=== PATIENT | female | born 1965 | race Caucasian/White ===

== ENCOUNTER 2020-08-30 06:15 | Observation (INO) | payer OTHER ==
[~2020-08-30] VITALS: Ht 172.7 cm; Wt 84.1 kg
[~2020-08-30 06:15] MED LIST: ASCO500T8 PO; CHOL10003 PO; IBUP1TAB11 PO; LOSA100T14 PO; MULT-90 PO; VITA15LO2 PO
[2020-08-30] MEDS ORDERED: ONDANSETRON 2MG/ML, 2ML ONE ×2 (06:55→18:29)
[2020-08-30] MEDS ORDERED: MORPHINE SULFATE 4 MG/ML, 1ML ONE (06:56)
[2020-08-30] MEDS: MORPHINE SULFATE 4 MG/ML, 1ML IVPush PRN ×2 (06:57→13:24)
[2020-08-30] MEDS ORDERED: ONDANSETRON 2MG/ML, 2ML IVPush ONE (07:00)
[2020-08-30] MEDS ORDERED: SODIUM CHLORIDE FLUSH 10ML SYR IVF ONE (07:00)
--- NOTE | 2020-08-30 07:10 | NUR ---
Report received from RAZ Adamson at bedside and care assumed. Pt on pacer pads at bedside but not being paced at this time. VS noted as stable but hypertensive, pt is awake and oriented without c/o at this time. Pt awaiting bed assignment to be transferred to telemetry.
[2020-08-30 07:13] LABS: BASOPHILS % (AUTO) 0 % (0-1); EOSINOPHILS % (AUTO) 0 % (1-7); LYMPHOCYTES % (AUTO) 13 % (22-44); MEAN CORPUSCULAR HEMOGLOBIN 29.9 pg (27.0-34.8); MEAN CORPUSCULAR HGB CONC 34.5 g/dL (32.4-35.8); MEAN PLATELET VOLUME 7.5 fL (7.4-10.4); MONOCYTES % (AUTO) 5 % (2-9); NEUTROPHILS % (AUTO) 81 % (42-75); PLATELET COUNT 335 x10^3/uL (130-400); RED BLOOD COUNT 4.84 x10^6/uL (3.82-5.3); RED CELL DISTRIBUTION WIDTH 13.2 % (9.6-15.2)
[2020-08-30 07:15] LABS: ALANINE AMINOTRANSFERASE 233 U/L (12-78); ALBUMIN 3.8 g/dL (3.4-5.0); ANION GAP 7 mmol/L (5-15); CALCIUM 9.6 mg/dL (8.5-10.1); CHLORIDE 113 mmol/L (98-107)
[2020-08-30 07:16] LABS: MD NO
[2020-08-30 07:20] LABS: ALKALINE PHOSPHATASE 93 U/L (45-117); BILIRUBIN,TOTAL 1.2 mg/dL (0.2-1.0); CREATININE 0.68 mg/dL (0.55-1.02); TOTAL PROTEIN 7.2 g/dL (6.4-8.2); TROPONIN I < 0.015 ng/mL (0.000-0.045)
--- NOTE | 2020-08-30 07:57 | NUR ---
Pt off unit to radiology at this time. Visitor in room offered beverages but declined. States he is okay right now.
--- NOTE | 2020-08-30 08:03 | NUR ---
Pt back to room from radiology without acute changes noted.
--- NOTE | 2020-08-30 08:56 | NUR ---
Pt noted out of room for radiology exam at this time. Addendum: 08/30/20 at [id number] by MURIEL time charted incorrectly, actual time of note should be 0750
[2020-08-30] MEDS ORDERED: CEFTRIAXONE PMX 1GM/50ML 50 ML ONE (10:23)
[2020-08-30] MEDS ORDERED: METRONIDAZOLE PMX 500MG/100ML 100 ML ONE (10:23)
[2020-08-30] MEDS ORDERED: SODIUM CHLORIDE FLUSH 10ML SYR IVF PRN (10:30)
[2020-08-30] MEDS ORDERED: METRONIDAZOLE PMX 500MG/100ML 100 ML IV ONE (10:30)
[2020-08-30] MEDS ORDERED: ONDANSETRON 2MG/ML, 2ML IVPush PRN (10:30)
[2020-08-30] MEDS ORDERED: CEFTRIAXONE PMX 1GM/50ML 50 ML IV ONE (10:30)
[2020-08-30] MEDS ORDERED: MORPHINE SULFATE 4 MG/ML, 1ML IVPush PRN (10:30)
--- NOTE | 2020-08-30 10:46 | NUR ---
Rocephin IVPB started as ordered via IV pump. MD at bedside to discuss plan of care for today.
[2020-08-30] MEDS ORDERED: POTASSIUM CHLORIDE 20 MEQ in SODIUM CHLORIDE 0.45% 1,000 ML IV ONE (11:00)
--- NOTE | 2020-08-30 11:50 | NUR ---
Report called to RAZ Vasquez and assigned to room 447. Pt aware of room assignment and readied for transport to floor.
[2020-08-30 12:31] VITALS: BP 119/70
[2020-08-30] MEDS ORDERED: IBUP1TAB11 PO (12:51)
[2020-08-30] MEDS ORDERED: LOSA100T14 PO (12:51)
[2020-08-30] MEDS ORDERED: BUPIVACAINE/PF-EPI 0.5% 1:200K ONE (17:28)
[2020-08-30] MEDS ORDERED: BUPIVACAINE/PF 0.5% ONE (17:34)
[2020-08-30] MEDS ORDERED: MIDAZOLAM 1 MG/ML, 2ML ONE (17:46)
[2020-08-30] MEDS ORDERED: FENTANYL PF 250 MCG/5ML ONE (17:47)
[2020-08-30] MEDS ORDERED: CEFAZOLIN 1,000 MG ONE (18:29)
[2020-08-30] MEDS ORDERED: SUCCINYLCHOLINE 20 MG/ML, 10ML ONE (18:29)
[2020-08-30] MEDS ORDERED: NEOSTIGMINE 1 MG/ML, 10ML ONE (18:29)
[2020-08-30] MEDS ORDERED: PROPOFOL 10 MG/ML, 20ML ONE (18:29)
[2020-08-30] MEDS ORDERED: ROCURONIUM 10MG/ML,5ML ONE (18:29)
[2020-08-30] MEDS ORDERED: SUGAMMADEX 200 MG/2 ML IVPush ONE ×2 (18:29)
[2020-08-30] MEDS ORDERED: KETOROLAC 30 MG/1 ML ONE (18:29)
[2020-08-30] MEDS ORDERED: GLYCOPYRROLATE 0.2MG/1ML, 5ML ONE (18:29)
[2020-08-30] MEDS ORDERED: FENTANYL PF 100 MCG/2ML IV PRN (18:30)
[2020-08-30] MEDS ORDERED: ACETAMINOPHEN 325 MG TABLET PO PRN ×2 (18:30)
[2020-08-30] MEDS ORDERED: PROMETHAZINE 25 MG/ML, 1ML IV PRN ×2 (18:30)
[2020-08-30] MEDS ORDERED: hydrALAzine 20 MG/ML, 1ML IV PRN ×2 (18:30)
[2020-08-30] MEDS ORDERED: ALBUTEROL SULFATE 2.5 MG/3 ML NPPB PRN ×2 (18:30)
[2020-08-30] MEDS ORDERED: HYDROmorphone 2 MG/ML, 1ML IVPush PRN ×2 (18:30)
[2020-08-30] MEDS ORDERED: KETOROLAC 30 MG/1 ML IV PRN ×2 (18:30)
[2020-08-30] MEDS ORDERED: LABETALOL 5MG/ML, 20ML IV PRN ×2 (18:30)
[2020-08-30] MEDS ORDERED: MEPERIDINE/PF 25MG/0.5ML IVPush PRN ×2 (18:30)
[2020-08-30] MEDS ORDERED: OXYcodone 5 MG/5 ML ORAL.SOL UDC PO PRN ×2 (18:30)
[2020-08-30] MEDS ORDERED: DIAZEPAM 5 MG/ML, 2ML IVPush PRN ×2 (18:30)
[2020-08-30] MEDS ORDERED: OXYcodone 5 MG/5 ML ORAL.SOL UDC ONE (18:46)
[2020-08-30] MEDS ORDERED: ACETAMINOPHEN 650 MG/20.3 ML UDC ONE (18:46)
[2020-08-30] MEDS ORDERED: FENTANYL PF 100 MCG/2ML ONE (18:46)
[2020-08-30] MEDS: FENTANYL PF 100 MCG/2ML IV PRN ×2 (18:48→19:00)
[2020-08-30] MEDS ORDERED: MEPERIDINE/PF 25MG/ML,1ML ONE (19:18)
[2020-08-30 20:58] VITALS: BP 149/86
== END 2020-08-30 21:26 | disposition home or self-care (01) ==
LOC: ED 06:58 → INTOOBSV 11:35 → EDIP 11:35 → 4NE 12:24
PROVIDERS: ADMIT Surgery; ATTEND Surgery
DX: K80.00 Calculus of gallbladder with acute cholecystitis without obstruction (principal); Z20.828 Contact with and (suspected) exposure to other viral communicable diseases; I10 Essential (primary) hypertension; K21.9 Gastro-esophageal reflux disease without esophagitis; F41.1 Generalized anxiety disorder; Z90.710 Acquired absence of both cervix and uterus; Z79.899 Other long term (current) drug therapy
CPT/HCPCS: 36415; 47562; 74181; 76700; 80053; 83690; 84484; 85025; 87635; 88304; 93005; 96361; 96365; 96367; 96375; 99285; G0378; J0330; J0690; J0696; J1885; J2175; J2250; J2270; J2405; J2704; J2710; J3010; J3480; S0020